=== PATIENT | male | born 1980 | race Caucasian/White ===

== ENCOUNTER 2023-08-30 11:17 | Emergency (ER) | payer OTHER ==
[~2023-08-30] VITALS: Ht 172.7 cm; Wt 91.6 kg
[2023-08-30] MEDS ORDERED: GLUMETZA500 MG (11:38)
[2023-08-30] MEDS ORDERED: NORFLEX100MG PO (11:57)
== END 2023-08-30 12:40 | disposition home or self-care (01) ==
LOC: ER 11:17
DX: M54.9 Dorsalgia, unspecified (principal); Z88.2 Allergy status to sulfonamides; Z88.6 Allergy status to analgesic agent; Z91.041 Radiographic dye allergy status